=== PATIENT | female | born 1990 | race Caucasian/White ===

== ENCOUNTER 2022-01-13 11:56 | Emergency (ER) | payer MEDICAID ==
[2022-01-13] MEDS ORDERED: Sodium Chloride 0.9% 1,000 ML IV ONE (12:12)
[2022-01-13] MEDS ORDERED: Morphine 4 MG/ML VIAL IVPUSH ONE (12:45)
[2022-01-13] MEDS ORDERED: Ondansetron 4 MG/2 ML SDV IVPUSH ONE (12:45)
[2022-01-13 13:09] LABS: CARBON DIOXIDE,CO2 28.4 mmol/L (21.0-32.0)
[2022-01-13] MEDS ORDERED: Ketorolac 30 MG/ML SDV IVPUSH ONE (13:11)
[2022-01-13] MEDS ORDERED: Morphine 2 MG/ML SYRINGE IVPUSH ONE (16:09)
== END 2022-01-13 17:08 | disposition home or self-care (01) ==
LOC: MW.ED 11:56
DX: N83.202 Unspecified ovarian cyst, left side (principal)
CPT/HCPCS: 36415; 74176; 76830; 80053; 81003; 83690; 84703; 85025; 96361; 96374; 96375; 96376; 99284; J1885; J2270; J2405; J7030

== ENCOUNTER 2022-03-15 06:40 | Day surgery (SDC) | payer MEDICAID ==
[~2022-03-15 06:40] MED LIST: Lactated Ringers 1,000 ML IV SCH; Sodium Chloride 0.9% 10 ML Syringe FLUSH PRN; Sodium Chloride 0.9% 2.5 ML Syringe FLUSH PRN; Sodium Chloride 0.9% 20 ML SDV IV PRN
[2022-03-15] MEDS ORDERED: Propofol 200 MG/20 ML SDV ONE ×2 (07:23→08:23)
[2022-03-15] MEDS ORDERED: Lidocaine 2% 5 ML SDV ONE (07:29)
== END 2022-03-15 09:15 | disposition home or self-care (01) ==
LOC: MW.SDS 06:40
PROVIDERS: ATTEND Surgery
DX: K52.9 Noninfective gastroenteritis and colitis, unspecified (principal); K21.9 Gastro-esophageal reflux disease without esophagitis; F32.A Depression, unspecified; G47.00 Insomnia, unspecified; E55.9 Vitamin D deficiency, unspecified; Z79.899 Other long term (current) drug therapy; Z98.890 Other specified postprocedural states; Z86.73 Personal history of transient ischemic attack (TIA), and cerebral infarction without residual deficits
CPT/HCPCS: 43239; 45380; 81025; J2704; J7120; 00813

== ENCOUNTER 2022-07-11 06:32 | Day surgery (SDC) | payer MEDICAID ==
[2022-07-11] MEDS ORDERED: Metoclopramide 10 MG/2 ML SDV IVPUSH PRN (06:56)
[2022-07-11] MEDS ORDERED: HYDROmorphone 1 MG/ML Syringe IVPUSH PRN (06:56)
[2022-07-11] MEDS ORDERED: Albuterol 0.083% 2.5 MG/3 ML Neb Soln NEB PRN (06:56)
[2022-07-11] MEDS ORDERED: fentaNYL 50 MCG/ML SDV IVPUSH PRN (06:56)
[2022-07-11] MEDS ORDERED: Ondansetron 4 MG/2 ML SDV IVPUSH PRN (06:56)
[2022-07-11] MEDS ORDERED: Naloxone 0.4 MG/ML SDV IVPUSH PRN (06:56)
[2022-07-11] MEDS ORDERED: Morphine 2 MG/ML SYRINGE IVPUSH PRN (06:56)
[2022-07-11] MEDS ORDERED: Propofol 200 MG/20 ML SDV ONE (07:30)
[2022-07-11] MEDS ORDERED: fentaNYL 100 MCG/2 ML SDV ONE ×2 (07:30→09:55)
[2022-07-11] MEDS ORDERED: Phenylephrine 1% 10 MG/ML SDV ONE (07:31)
[2022-07-11] MEDS ORDERED: Glycopyrrolate 0.2 MG/ML SDV ONE (07:31)
[2022-07-11] MEDS ORDERED: ePHEDrine 50 MG/ML SDV ONE (07:31)
[2022-07-11] MEDS ORDERED: Bupivacaine 0.5% 30 ML SDV ONE (07:31)
[2022-07-11] MEDS ORDERED: Bupivacaine 0.25% 30 ML SDV ONE ×2 (07:31→07:44)
[2022-07-11] MEDS ORDERED: Dexmedetomidine 200 MCG/2 ML SDV ONE (07:31)
[2022-07-11] MEDS ORDERED: Ketorolac 30 MG/ML SDV ONE (07:36)
[2022-07-11] MEDS ORDERED: Sugammadex Sodium 200 MG/2 ML VIAL ONE (07:36)
[2022-07-11] MEDS ORDERED: Lidocaine 2% 5 ML SDV ONE (07:36)
[2022-07-11] MEDS ORDERED: Rocuronium Bromide 50 MG/5 ML Syringe ONE ×2 (07:36→09:26)
[2022-07-11] MEDS ORDERED: Dexamethasone 4 MG/ML 5 ML MDV ONE (07:36)
[2022-07-11] MEDS ORDERED: Ondansetron 4 MG/2 ML SDV ONE (07:36)
[2022-07-11] MEDS ORDERED: Magnesium Sulfate (4.06 MEQ/ML) 5 GM/10 ML SDV ONE (07:37)
[2022-07-11] MEDS ORDERED: Water For Injection, Sterile 20 ML ONE ×2 (07:37→07:40)
[2022-07-11] MEDS ORDERED: ceFAZolin 2 GM Vial ONE (07:38)
[2022-07-11] MEDS ORDERED: Ropivacaine 0.5% 5 MG/ML 30 ML SDV ONE (07:44)
[2022-07-11] MEDS ORDERED: ceFAZolin 2 GM in Premix Bag 1 BAG IV ONE (07:58)
[2022-07-11] MEDS ORDERED: Famotidine 20 MG/2 ML SDV ONE (08:00)
== END 2022-07-11 12:35 | disposition home or self-care (01) ==
LOC: MW.SDS 06:32
PROVIDERS: ATTEND Surgery
DX: N83.202 Unspecified ovarian cyst, left side (principal); K81.1 Chronic cholecystitis; F33.9 Major depressive disorder, recurrent, unspecified; K58.9 Irritable bowel syndrome, unspecified; G47.00 Insomnia, unspecified; E55.9 Vitamin D deficiency, unspecified; K21.9 Gastro-esophageal reflux disease without esophagitis; Z79.899 Other long term (current) drug therapy; Z98.890 Other specified postprocedural states
CPT/HCPCS: 47562; 58662; J0131; J0690; J1100; J1885; J2370; J2405; J2704; J2795; J3010; J3475; J3490; J7120

== ENCOUNTER 2023-01-17 08:08 | Emergency (ER) | payer MEDICAID ==
[2023-01-17] MEDS ORDERED: Prochlorperazine 10 MG/2 ML SDV IVPUSH ONE (08:37)
[2023-01-17] MEDS ORDERED: Naloxone 0.4 MG/ML SDV IVPUSH PRN (08:37)
[2023-01-17] MEDS ORDERED: Ketorolac 30 MG/ML SDV IVPUSH ONE (08:37)
[2023-01-17] MEDS ORDERED: diphenhydrAMINE 50 MG/ML SDV IVPUSH ONE (08:37)
[2023-01-17] MEDS ORDERED: Sodium Chloride 0.9% 1,000 ML IV ONE (08:37)
[2023-01-17] MEDS ORDERED: Sodium Chloride 0.9% 10 ML Syringe FLUSH PRN (08:37)
[2023-01-17] MEDS ORDERED: Sodium Chloride 0.9% 2.5 ML Syringe FLUSH PRN (08:37)
[2023-01-17] MEDS ORDERED: fentaNYL 50 MCG/ML SDV IVPUSH ONE (08:37)
[2023-01-17 08:54] LABS: BILIRUBIN,URINE NEGATIVE (NEGATIVE); GLUCOSE,URINE NEGATIVE (NEGATIVE); KETONES,URINE NEGATIVE (NEGATIVE); LEUKOCYTE ESTERASE,URINE TRACE (NEGATIVE); NITRITE,URINE NEGATIVE (NEGATIVE); OCCULT BLOOD,URINE NEGATIVE (NEGATIVE); PROTEIN,URINE NEGATIVE (NEGATIVE); UROBILINOGEN,URINE 0.2 EU/dL (<2.0)
[2023-01-17 09:01] LABS: BASOPHILS PERCENT AUTO 0.3 % (0.0-1.5); EOSINOPHILS ABSOLUTE AUTO 0.2 K/uL (0.0-0.7); EOSINOPHILS PERCENT AUTO 2.2 % (0.0-7.0); HEMATOCRIT 41.6 % (36.0-46.0); HEMOGLOBIN 14.2 g/dL (12.0-16.0); LYMPHOCYTES ABSOLUTE AUTO 1.9 K/uL (0.6-2.4); LYMPHOCYTES PERCENT AUTO 25.4 % (16.0-40.0); MEAN CORPUSCULAR HEMOGLOBIN 30.6 pg (27.0-32.0); MEAN CORPUSCULAR HGB CONC 34.1 g/dL (31.0-37.0); MEAN CORPUSCULAR VOLUME 89.7 fL (80.0-98.0); MONOCYTES ABSOLUTE AUTO 0.5 K/uL (0.0-0.8); MONOCYTES PERCENT AUTO 6.6 % (0.0-15.0); NEUTROPHILS ABSOLUTE AUTO 4.8 K/uL (1.4-5.7); NEUTROPHILS PERCENT AUTO 65.5 % (48.0-80.0); NRBC ABSOLUTE 0 K/uL; PLATELET COUNT,PLT 239 K/uL (150-400); RED BLOOD CELL COUNT 4.64 M/uL (4.30-5.90); WHITE BLOOD CELL COUNT,WBC 7.32 K/uL (4.0-11.0)
[2023-01-17 09:03] LABS: APPEARANCE,URINE SLT CLOUDY; COLOR,URINE YELLOW
[2023-01-17 09:04] LABS: EPITHELIAL CELLS,URINE OCCASIONAL (NONE-FEW); RBC,URINE 0-2 (0-2/HPF); WBC,URINE 0-3 (0-5/HPF)
[2023-01-17 09:05] LABS: CALCIUM OXALATE CRYSTALS,URINE OCCASIONAL (NEGATIVE)
[2023-01-17 09:13] LABS: CALCIUM 8.8 mg/dL (8.5-10.1); CARBON DIOXIDE,CO2 23.8 mmol/L (21.0-32.0); CREATININE 0.8 mg/dL (0.6-1.0); EST CRCL DRUG DOSING (CG) 110.18 mL/min; POTASSIUM,K 3.6 mmol/L (3.5-5.1)
== END 2023-01-17 11:10 | disposition home or self-care (01) ==
LOC: MW.ED 08:08
DX: N13.2 Hydronephrosis with renal and ureteral calculous obstruction (principal); Z86.73 Personal history of transient ischemic attack (TIA), and cerebral infarction without residual deficits; Z79.899 Other long term (current) drug therapy
CPT/HCPCS: 36415; 74176; 80048; 81001; 81025; 85025; 96361; 96374; 96375; 99284; J0780; J1200; J1885; J3010; J3490; J7030

== ENCOUNTER 2024-04-10 14:17 | Emergency (ER) | payer MEDICAID ==
[2024-04-10 15:13] LABS: BASOPHILS ABSOLUTE AUTO 0.04 K/uL (0.00-0.20); BASOPHILS PERCENT AUTO 0.6 % (0.0-1.0); EOSINOPHILS ABSOLUTE AUTO 0.11 K/uL (0.00-0.45); EOSINOPHILS PERCENT AUTO 1.7 % (0.0-6.0); HEMATOCRIT 40.9 % (37.0-47.0); HEMOGLOBIN 14.3 g/dL (12.0-16.0); IMMATURE GRAN ABSOLUTE AUTO 0.02 K/uL (0.00-0.05); IMMATURE GRAN PERCENT AUTO 0.3 % (0.0-0.4); LYMPHOCYTES ABSOLUTE AUTO 1.83 K/uL (1.00-4.80); MEAN CORPUSCULAR HEMOGLOBIN 30.8 pg (28.0-32.0); MEAN PLATELET VOLUME 10.1 fL (9.4-12.3); MONOCYTES ABSOLUTE AUTO 0.45 K/uL (0.00-0.80); MONOCYTES PERCENT AUTO 7.1 % (0.0-8.0); NEUTROPHILS ABSOLUTE AUTO 3.85 K/uL (1.80-7.70); NEUTROPHILS PERCENT AUTO 61.3 % (41.0-71.0); PLATELET COUNT,PLT 262 K/uL (150-400); RED BLOOD CELL COUNT 4.65 M/uL (4.10-5.30)
[2024-04-10 15:47] LABS: A/G RATIO 1.2 (0.9-1.6); ALANINE AMINOTRANSFERASE,ALT 50 IU/L (14-63); ALKALINE PHOSPHATASE 66 U/L (46-116); ASPARTATE AMNIOTRANSFERASE,AST 24 IU/L (15-37); BILIRUBIN TOTAL 1.8 mg/dL (0.2-1.0); BLOOD UREA NITROGEN,BUN 16 mg/dL (7.0-18.0); CARBON DIOXIDE,CO2 26.9 mmol/L (21.0-32.0); CHLORIDE,CL 105 mmol/L (98-107); CREATININE 0.9 mg/dL (0.6-1.0); EST CRCL DRUG DOSING (CG) 96.14 mL/min; GLUCOSE RANDOM 93 mg/dL (74-106); LIPASE 52 U/L (16-77); MAGNESIUM 2.1 mg/dL (1.8-2.4); POTASSIUM,K 3.9 mmol/L (3.5-5.1); PROTEIN TOTAL,TP 7.3 g/dL (6.4-8.2); SODIUM,NA 141 mmol/L (136-145)
[2024-04-10 15:48] LABS: ESTIMATED GFR 87 mL/min (>60)
== END 2024-04-10 16:13 | disposition home or self-care (01) ==
LOC: MW.ED 14:17
DX: R07.9 Chest pain, unspecified (principal); Z90.49 Acquired absence of other specified parts of digestive tract; Z86.73 Personal history of transient ischemic attack (TIA), and cerebral infarction without residual deficits; Z79.899 Other long term (current) drug therapy; Z75.8 Other problems related to medical facilities and other health care
CPT/HCPCS: 36415; 71046; 71046-26; 80053; 83690; 83735; 84484; 84703; 85025; 85379; 93005; 99285